=== PATIENT | female | born 1935 | race Caucasian/White ===

== ENCOUNTER 2017-02-14 11:21 | Inpatient (IN) ==
[2017-02-14] MEDS ORDERED: ONDANSETRON 4 MG/2 ML INJECTION IVP ONE (12:43)
[2017-02-14] MEDS ORDERED: MORPHINE SULFATE 4 MG SYRINGE IVP ONE (12:43)
--- NOTE | 2017-02-14 12:47 | Emergency Department Report ---
Abdominal Pain HPI - General Chief Complaint: Abdominal Pain Stated Complaint: groin pain Time Seen by Provider: 02/14/17 12:38 Source: patient Mode of arrival: ambulatory Limitations: no limitations - History of Present Illness HPI narrative: Last night she was at home and picked up a heavy pot. She felt a pain in her abdomen shortly after that. Pain persisted all night and she did not sleep well due to this. She noticed a lump in the right lower abdomen this morning. Has had some nausea but no vomiting. She has had a BM since the pain started but no diarrhea. Denies any fever or chills or history of pain like this in the past. MD complaint: abdominal pain Consistency: constant Location: RLQ Severity: moderate Quality: sharp Radiation: none Relieving factors: nothing Exacerbating factors: nothing Associated symptoms: nausea - Related Data Home Medications Medication Instructions Recorded Confirmed Glucosamine Sulfate Dipot Chlr 1,000 mg PO TID #0 08/27/12 02/14/17 [Glucosamine] Magnesium Oxide [Magnesium] 250 mg PO HS #0 tab 11/15/14 02/14/17 Cranberry Fruit Extract [Cranberry] 200 mg PO TID #0 05/26/16 02/14/17 Aspirin/Acetaminophen/Caffeine 1 tab PO Q4H PRN 02/14/17 02/14/17 [Excedrin Extra Strength Caplet] Calcium Carbonate [Calcium] 500 mg PO HS 02/14/17 02/14/17 Esomeprazole Magnesium [Nexium] 20 mg PO DAILY 02/14/17 02/14/17 Turmeric Root Extract [Turmeric] 500 mg PO DAILY 02/14/17 02/14/17 diphenhydrAMINE HCl [Benadryl] 25 mg PO Q6H PRN 02/14/17 02/14/17 Allergies Allergy/AdvReac Type Severity Reaction Status Date / Time No Known Drug Allergies Allergy Unknown Verified 02/14/17 14:04 Review of Systems Constitutional: Denies: fever, chills Cardiovascular: Denies: chest pain, palpitations, dyspnea on exertion, edema Respiratory: Denies: cough, dyspnea, wheezes Gastrointestinal: Reports: abdominal pain, nausea. Denies: vomiting, diarrhea, constipation Genitourinary: Denies: urgency, dysuria, frequency Integumentary: Denies: rash Neurological: Denies: headache, weakness, numbness PFSH Surgical History: Hysterectomy. right total knee replacement. appendectomy Family History Updates: Non contributory - Social History Smoking status: Never smoker Substance use type: does not use Alcohol intake frequency: does not drink Physical Exam - Limitations Limitations: no limitations - General General appearance: alert, in no apparent distress - Normal Exams: Neck:: Full range of motion, without adenopathy, JVD, bruits or thyromegaly Chest/Respirations:: Clear all coles, with good airflow, and symmetry bilaterally Cardiovascular:: Regular rate and rhythm, without murmur or gallop, Pulses 2+ all extremities, capillary refill, <2 seconds all extremities Integumentary:: No rashes, hives, or bruising noted Neurological:: Patient is alert, and oriented Psychiatric:: Patient exhibits, appropriate attention, emotion and affect - Abdominal Exam Abdominal exam: Present: soft, tenderness (TTP in the periumbilical region with some bulging noted in the right inguinal region. This is firm and she states that there is burning with palpation of the lump. Did try to reduce the lump but was not successful), normal bowel sounds. Absent: distention, guarding, rebound Course - Consultations Consultation #1: Discussed CT and labs and exam finding with Dr Gramajo. He will come up and evaluate patient for admission at this time. Time: 14:46 Vital Signs Temperature 98.2 F 02/14/17 11:35 Pulse Rate 84 02/14/17 11:35 Respiratory Rate 16 02/14/17 11:35 Blood Pressure 123/56 02/14/17 11:35 Pulse Oximetry 96 02/14/17 11:35 Temperature 98.2 F 02/14/17 11:35 Pulse Rate 84 02/14/17 11:35 Respiratory Rate 16 02/14/17 11:35 Blood Pressure 123/56 02/14/17 11:35 Pulse Oximetry 96 02/14/17 11:35 Abdominal Pain - MDM Narrative Medical decision making narrative: Labs today are normal. Ct does show partial small bowel obstruction. Dr Gramajo will admit today. - Differential Diagnosis Differential diagnosis: Likely: abdominal pain, acute appendicitis, other ( incarcerated or strangulated hernia) - Lab Data Attestation: I reviewed the patient's lab results. Result diagrams: 02/14/17 12:56 02/14/17 12:56 - Radiology Data Attestation: I reviewed the patient's radiology results. Partial vs early small bowel obstruction in RLQ. Did discuss the lump noted on exam with radiologist and she states that this is fluid and not small bowel. Disposition Clinical Impression: Partial small bowel obstruction Disposition: 02 To [facility] Condition: Stable Time of Disposition: 14:56 - Seen By: midlevel
[2017-02-14] MEDS: NS 1,000 ML IV SCH ×4 (13:05→17:01)
[2017-02-14] MEDS ORDERED: NS 100 ML ONE (13:08)
[2017-02-14] MEDS ORDERED: SALINE FLUSH 10ml SYRINGE ONE (13:08)
[2017-02-14] MEDS ORDERED: IOHEXOL 300mg/ml 75ml INJECTION ONE (13:08)
[2017-02-14] MEDS: SALINE FLUSH 10ml SYRINGE IVF PRN (14:08)
[2017-02-14] MEDS ORDERED: MORPHINE SULFATE 4 MG SYRINGE IVP PRN (15:53)
--- NOTE | 2017-02-14 16:27 | History and Physical ---
DATE OF SERVICE 02/14/2017 FINDINGS Mrs. Traore is a 81-year-old female whom I was asked to see through the emergency room department today as a result of her history and physical findings of abdominal pain and abnormal CT scan. Upon questioning Mrs. Traore she informs me that yesterday she lifting a heavy pot of soil to plant some tomato plants. Patient states that she began to notice some discomfort within her right inguinal region. As the evening progressed she began to notice that the pain was throughout her entire abdomen. Patient states she was fairly uncomfortable throughout the evening. She has continued to be somewhat uncomfortable today. Upon entering the ER now she states that she is feeling significantly better and requesting to go home. Last evening she described the pain as being throughout her entire abdomen. She did have some nausea in association with the pain but no emesis. PAST MEDICAL HISTORY Chronic Illness/System Disorders None. PAST SURGICAL HISTORY Hysterectomy. Appendectomy. Total knee arthroscopy. MEDICATIONS Glucosamine. Magnesium. Cranberry. Aspirin. Calcium. Nexium. Tumeric. Benadryl. For complete doses and frequencies please refer to the electronic medical record. ALLERGIES No known drug allergies. SOCIAL HISTORY The patient denies alcohol or tobacco use. FAMILY HISTORY The patient states her parents are and in their late 80s. They from old age per her report. REVIEW OF SYSTEMS Complete review of systems undertaken with the patient and essentially negative except as stated above in Findings section for Constitutional, HEENT, Cardiac, Respiratory, GI, , Musculoskeletal, Hematology/Oncology, Endocrine, and Psychiatric. PHYSICAL EXAMINATION GENERAL: Mrs. Traore is a 81-year-old female who upon entering the ER bay did not appear to be in acute distress. VITAL SIGNS: Temperature 98.2, pulse 84, respirations 16, blood pressure 123/56 , SAO2 96% on room air. Pulse 78. HEENT: Normocephalic. PERRLA. NECK: Supple without lymphadenopathy. CHEST: Clear to auscultation bilaterally. HEART: Regular rate and rhythm. Normal S1 and S2. ABDOMEN: Palpation of the abdomen reveals it to be soft and nontender throughout. She essentially had no element of guarding or rebound. Palpation within the right inguinal region does reveal a palpable abnormality on the order of 3 cm in diameter. Palpation of this firm abnormality within the right inguinal region did not elicit any discomfort to the patient. The skin was not erythematous overlying this palpable abnormality. No palpable abnormality was noted within the left inguinal region. EXTREMITIES: Without clubbing, cyanosis, or edema. NEURO: Cranial nerves II-XII grossly intact. Patient is without focal motor or sensory deficits. LABORATORY/RADIOGRAPHIC EVALUATION The patient had a CBC through the ER. White count was 10.0. Hemoglobin is 14.0. CMP was obtained and found to be without marked abnormalities. UA was obtained and found to be also essentially within normal limits. A CT scan of her abdomen and pelvis was obtained. I did review the CT scan personally as well as looked at the dictated report. The patient does have a proximal small bowel dilatation. One can see a transition zone with the distal small bowel being collapsed. I did not see evidence for bowel within the right inguinal region but one can see some fluid within the inguinal region. I could not course or see evidence for bowel extending into the right inguinal region. There is some fecalization appearance of the proximal small bowel. CT scan findings were suggestive of a possible early small bowel obstruction. ASSESSMENT 81-year-old female with possible early small bowel obstruction. Patient without acute surgical abdomen. PLAN Clinically and upon physical examination the patient does not have a surgical abdomen requiring emergent intervention. I am concerned, however, given her abnormal CT scan revealing a fair amount of proximal small bowel dilatation. Additionally, as stated above, there is an apparent transition zone with the distal small bowel being more of a normal caliber. Given her CT scan findings and this firmness noted within her right inguinal region it was my recommendation to go ahead and admit the patient to the hospital for observation. Will follow her with serial abdominal examinations. Will repeat radiographic evaluation in the consisting of KUB and upright. Will obtain additional lab work tomorrow. If the patient continues to have evidence for small bowel obstruction may proceed with Gastrografin small bowel follow- through for further evaluation. The above plan was discussed with the patient. She was in agreement and wished to be admitted for observation at this time. OBI
[2017-02-14] MEDS: D5-1/2NS with KCL 20mEq 1,000 ML IV SCH (16:39)
[2017-02-14] MEDS: FAMOTIDINE PREMIX 20 MG/50 ML BAG IV SCH (16:58)
[2017-02-14] MEDS: KETOROLAC 15 MG/ML INJECTION IVP PRN (17:35)
[2017-02-14] MEDS: METOCLOPRAMIDE 10mg/2ml INJECTION IVP PRN (17:37)
[2017-02-14] MEDS: ACETAMINOPHEN 325 MG TABLET PO PRN (20:06)
[2017-02-14] MEDS: ONDANSETRON 4 MG/2 ML INJECTION IVP PRN (20:09)
[2017-02-15] MEDS: D5-1/2NS with KCL 20mEq 1,000 ML IV SCH ×2 (03:18→15:18)
[2017-02-15] MEDS: ACETAMINOPHEN 325 MG TABLET PO PRN (03:21)
[2017-02-15] MEDS: FAMOTIDINE PREMIX 20 MG/50 ML BAG IV SCH ×2 (04:24→15:21)
[2017-02-15] MEDS: KETOROLAC 15 MG/ML INJECTION IVP PRN (04:28)
[2017-02-15] MEDS: ONDANSETRON 4 MG/2 ML INJECTION IVP PRN (07:01)
[2017-02-15] MEDS: METOCLOPRAMIDE 10mg/2ml INJECTION IVP PRN (08:21)
[2017-02-15] MEDS: HYDROMORPHONE 2 MG/ML INJECTION IVP PRN ×3 (08:38→15:18)
[2017-02-15] MEDS: ZOLMITRIPTAN 2.5 MG TABLET PO PRN ×3 (08:43→21:01)
--- NOTE | 2017-02-15 10:02 | CT Scan Report ---
Indication: RLQ pain/bulging PROCEDURE: CT abdomen pelvis w con: Encounter: Initial Comparison: None Technique: Axial CT images were performed through the abdomen and pelvis after the administration of intravenous contrast. Coronal and sagittal two-dimensional reformats. Automated Exposure Control and Iterative Reconstruction dose reducing techniques were utilized. Contrast: Omnipaque 300 68 mL Findings: Small bleb in the right lower lobe. Lung bases are otherwise clear. Large hiatal hernia with a partially intrathoracic stomach. The liver appears normal. The gallbladder is normal. The spleen, pancreas and adrenal glands are within normal limits. Kidneys are normal. No abdominal or pelvic adenopathy. Fat and fluid containing right femoral hernia. Bladder is grossly normal. Uterus is absent. Extensive colonic diverticulosis without evidence of acute diverticulitis. There are dilated fecalized loops of small bowel seen with a transition in the anterior pelvis. Small bowel loops are dilated up to 3.5 cm in diameter. The distal small bowel is totally decompressed. Bone windows are unremarkable for age. Impression: Acute high-grade or complete distal small bowel obstruction with transition in the right anterior pelvis. Surgical consultation is recommended. There is a preliminary report by [facility]. .
[2017-02-15] MEDS ORDERED: DIATRIZOATE MEGLUMINE/SOD. (66%/10%) 120ml SOLN ONE (10:08)
--- NOTE | 2017-02-15 10:11 | Consult Note ---
<ClotildeLucia rivera Denisse - Last Filed: 02/15/17 09:58> Consult Information - Data of Consult Patient: new to practice Requesting Physician: Inder Gramajo MD Primary Care Provider: Jose Knapp MD Family Provider: Jose Knapp MD - Consult Narrative Reason for consult: intractable migraine History of present illness: Yeimy Traore is a 81-year-old woman who is seen in consultation from Dr. Gramajo for further evaluation and treatment of a severe migraine. She was admitted to Dr. Gramajo's service on 02/14/17 for possible early small bowel obstruction. She stated that she began to have a mild headache in the afternoon of 02/14/17. She has a history of migraines, but hasn't had a severe one for several years. She denies ever seeing a neurologist or a headache specialist. She reports that she has at times required emergency department treatment for migraines when they become out of control. She describes her migraine is global, and is associated with severe photophobia, nausea, mild lightheadedness, and feeling hot. She received morphine 4 mg and Reglan 10 mg in the afternoon of 02/14/17 without much relief. Nursing staff also tried conservative measures such as an ice pack, which sometimes relieves her pain. By the time she went to bed, her headache was still present. The following morning, however, it was debilitating. She tried taking her home Zomig, without any relief. She was dry heaving and unable to barely move in bed, let alone be able to have her KUB done. By the time I arrived, she had received Reglan and Dilaudid IV, and her headache had nearly resolved. However, she was still feeling a little dizzy and was hesitant to move very quickly. Further ROS: Her abdominal pain has resolved. She had a BM last night. The tender spot in her right groin felt better. She denied any visual changes and her photophobia improved. She denied any sinus issues or respiratory problems or cough. No neck pain or paresthesias or unilateral weakness. She denied any chest pain or palpitations or leg swelling. No dysuria. Review of Systems All systems: reviewed and no additional remarkable complaints except as stated - Constitutional Constitutional: Present: as per HPI - EENMT Eyes: Present: as per HPI Balance: Present: as per HPI Nose: Present: as per HPI - Cardiovascular Cardiovascular: Absent: chest pain, palpitations - Respiratory Respiratory: Present: as per HPI - Gastrointestinal Gastrointestinal: Present: as per HPI - Genitourinary Genitourinary: Present: as per HPI - Musculoskeletal Musculoskeletal: Present: as per HPI - Integumentary/Breasts Integumentary: Absent: wounds - Neurological Neurological: Present: as per HPI, headache(s) - Psychiatric Psychiatric: Absent: anxiety, depression - Hematologic/Lymphatic Hematologic/Lymphatic: Absent: easy bruising PFSH GERD Cataracts OA Surgical History: Hysterectomy. right total knee replacement. appendectomy Family History: Her parents of old age. - Social History Smoking status: Never smoker Substance use type: does not use Alcohol intake frequency: does not drink Medications Home Medications Medication Instructions Recorded Confirmed Type Glucosamine Sulfate Dipot Chlr 1,000 mg PO TID #0 08/27/12 02/14/17 History [Glucosamine] Magnesium Oxide [Magnesium] 250 mg PO HS #0 tab 11/15/14 02/14/17 History Cranberry Fruit Extract [Cranberry] 200 mg PO TID #0 05/26/16 02/14/17 History Aspirin/Acetaminophen/Caffeine 1 tab PO Q4H PRN 02/14/17 02/14/17 History [Excedrin Extra Strength Caplet] Calcium Carbonate [Calcium] 500 mg PO HS 02/14/17 02/14/17 History Esomeprazole Magnesium [Nexium] 20 mg PO DAILY 02/14/17 02/14/17 History Turmeric Root Extract [Turmeric] 500 mg PO DAILY 02/14/17 02/14/17 History diphenhydrAMINE HCl [Benadryl] 25 mg PO Q6H PRN 02/14/17 02/14/17 History Allergies Allergy/AdvReac Type Severity Reaction Status Date / Time No Known Drug Allergies Allergy Unknown Verified 02/14/17 14:04 Exam Vital Signs: Temp Pulse Resp BP Pulse Ox 97.2 F 78 16 133/66 96 02/15/17 07:07 02/15/17 07:07 02/15/17 07:07 02/15/17 07:07 02/15/17 07:07 Height: 1.57 m Weight: 63.5 kg Body Mass Index: 25.2 - Constitutional Present: mild distress, well nourished, well developed - Routine HEENT Exam Head: Present: normocephalic Eye: Present: PERRL, conjunctivae pink. Absent: conjunctival icterus, scleral injection ENT: Present: oropharynx clear, dentition normal - Routine Neck Exam Present: supple. Absent: lymphadenopathy - Routine Respiratory Exam Present: CTA bilaterally - Routine Cardiovascular Exam Present: RRR, S1, S2 - Routine Abdominal Exam Present: soft, normoactive bowel sounds, non distended, non tender, mass (right groin) - Routine Extremities Exam Present: no edema, non tender, pulses intact, normal capillary refill - Routine Skin Exam Present: intact, dry, warm - Routine Neurological Exam Present: alert, oriented X3, CN II-XII intact, moving all extremities, vision grossly intact, hearing grossly intact. Absent: motor deficit, facial asymmetry - Routine Psychiatric Exam Present: normal affect, normal thought process Results - Labs CBC & Chem 7: 02/15/17 04:18 02/15/17 04:18 Assessment and Plan (1) Partial small bowel obstruction Current visit: Yes Status: Acute (2) Migraine Current visit: Yes Status: Acute Assessment and Plan: Migraine. -Relieved after IV Dilaudid. -If recurs, may try Zomig and/or oxygen -Continue with antiemetics -Records reviewed, but there were no ED visits for migraine from 2009- Partial small bowel obstruction -Symptoms improving -Per attending Hypotension -Blood pressure last night was 85/39 -Currently improved, 139/89 - however, this could be secondary to pain -Monitor closely and Continue IV fluids Labs reviewed -Normocytic anemia, suspect at least partially dilutional in nature -Chemistries unremarkable -Urinalysis negative for UTI Discussed with nursing staff, Dr. Ruiz, and Dr. Gramajo. Thank you for this consult. Hospital Course Summary Disclaimer: The visit summary below is not to be considered part of the above Progress Note. Hospital Course: 02/15/17 10:20 Migraine. -Relieved after IV Dilaudid. -If recurs, may try Zomig and/or oxygen -Continue with antiemetics -Records reviewed, but there were no ED visits for migraine from 2009- Partial small bowel obstruction -Symptoms improving -Per attending Hypotension -Blood pressure last night was 85/39 -Currently improved, 139/89 - however, this could be secondary to pain -Monitor closely and Continue IV fluids Labs reviewed -Normocytic anemia, suspect at least partially dilutional in nature -Chemistries unremarkable -Urinalysis negative for UTI Sepsis Assessment - Evaluation Sepsis screening result: No Definite Risk - Focused Exam Vital Signs Temp Pulse Resp BP Pulse Ox 02/15/17 07:07 97.2 F 78 16 133/66 96 02/15/17 04:37 105/47 02/14/17 23:27 98.2 F 70 16 85/39 92 <JosephKyara L - Last Filed: 02/15/17 12:05> Consult Information - Data of Consult Requesting Physician: Inder Gramajo MD Primary Care Provider: Jose Knapp MD Family Provider: Jose Knapp MD [facility] Patient Stated Medical History Cataracts Yes Gastroesophageal Reflux Yes Disease Other Yes: LEAKING Other Musculoskeletal Yes: ARTHRITIS IN FINGERS Blood Transfusions Yes: POST RTKA Menorrhagia Yes Exam Vital Signs: Temp Pulse Resp BP Pulse Ox 97.2 F 78 16 133/66 100 02/15/17 07:07 02/15/17 07:07 02/15/17 07:07 02/15/17 07:07 02/15/17 10:45 Height: 1.57 m Weight: 63.5 kg Results - Labs CBC & Chem 7: 02/15/17 04:18 02/15/17 04:18 Assessment and Plan (1) Partial small bowel obstruction Current visit: Yes Status: Acute (2) Migraine Current visit: Yes Status: Acute Assessment and Plan: 02/15/2017-I reviewed this chart, the patient history, and the [employer]'s/PA's documented findings as above. We discussed and formulated the assessment and plan as above with the additions below.-Dr. Ruiz I did see and examine the patient earlier this morning, and at that time she still had her migraine headache. She states her headache felt like migraine headache she's had in the past and was behind her eyes and on the top of her head. She had associated photophobia and nausea and vomiting. She denied any numbness, tingling or weakness. She denied any shortness of breath or chest pain. She continued to have some mild abdominal pain. On exam she was alert and oriented 3. HEENT revealed sclerae to be anicteric and pupils are equal. Extraocular movements are intact. Oropharynx is moist. Neck is supple. Chest is clear to auscultation. Cardiac vascular reveals a regular rate and rhythm. Abdomen is soft with mild tenderness. Bowel sounds are hypoactive. Extremities are free of edema. Neurologic reveals cranial nerves II through XII to be grossly intact. Motor strength is equal in upper and lower extremities. We'll continue IV fluids and Dilaudid as needed for migraine headache. Add oxygen and/or Zomig if needed. Hospital Course Summary Disclaimer: The visit summary below is not to be considered part of the above Progress Note. Sepsis Assessment - Focused Exam Vital Signs Temp Pulse Resp BP Pulse Ox 02/15/17 10:45 100 02/15/17 07:07 97.2 F 78 16 133/66 96 02/15/17 04:37 105/47
[2017-02-15] MEDS: SALINE FLUSH 10ml SYRINGE IVF PRN (13:38)
--- NOTE | 2017-02-15 13:47 | Progress Note ---
DATE OF SERVICE 02/15/2017 FINDINGS The patient this morning is complaining of a headache. She denied much in the way of severe abdominal pain. Patient states she did have a bowel movement last evening. PHYSICAL EXAM VITAL SIGNS: Temperature 97.2, pulse 78, respirations 16, blood pressure 133/66 , SAO2 96% on room air. CHEST: Clear to auscultation bilaterally. HEART: Regular rate and rhythm. Normal S1 and S2 without gallops, murmurs or clicks. ABDOMEN: Palpation within the abdomen reveals it to be soft and completely nontender. Palpation within the right inguinal region reveals a persistent mass although the mass does appear less prominent in nature in comparison to yesterday upon admission. This mass remains to be nontender in nature. I don' t appreciate evidence for hepatomegaly or other abnormal masses. LABORATORY/RADIOGRAPHIC EVALUATION The patient had a CBC today and her white count is down from 10,000 to 6000. Hemoglobin is stable at 11.9. BMP obtained and found to be essentially within normal limits. Although a KUB and upright have been ordered this has not been obtained as a result of the patient's headache. ASSESSMENT 81-year-old female with presentation of abdominal pain and CT scan findings of small bowel obstruction. Patient with new onset of migraine headache. PLAN Hospitalist has been consulted in regards to her migraine headache. Patient was not on medications for headaches prior to her admission. Patient states that she has not had headache like this for three to four years. In regards to her abdomen/possible small bowel obstruction, I have requested that the KUB and upright be obtained this morning so that it can be reviewed. Will likely obtain a Gastrografin small bowel series to rule out small-bowel obstruction. Will continue to follow the patient closely. OBI
[2017-02-15] MEDS ORDERED: PROMETHAZINE 25 MG SUPPOSITORY PR PRN (17:00)
[2017-02-15] MEDS ORDERED: MEPERIDINE 100 MG/ML INJECTION IVP PRN (17:01)
[2017-02-15] MEDS ORDERED: KETOROLAC 15 MG/ML INJECTION IVP ONE (17:26)
[2017-02-15] MEDS ORDERED: METOCLOPRAMIDE 10mg/2ml INJECTION IVP PRN (17:27)
[2017-02-15] MEDS ORDERED: DiphenhydrAMINE 50 MG/ML INJECTION IVP ONE (17:27)
[2017-02-15] MEDS ORDERED: DEXAMETHASONE 4 MG/ML INJECTION IVP ONE (17:38)
[2017-02-16] MEDS: D5-1/2NS with KCL 20mEq 1,000 ML IV SCH (04:01)
[2017-02-16] MEDS: FAMOTIDINE PREMIX 20 MG/50 ML BAG IV SCH (04:03)
--- NOTE | 2017-02-16 07:23 | Fluoroscopy Report ---
Indication: rule out small bowel obstruction PROCEDURE: FL small bowel follow through: Encounter: Initial Comparison: CT abdomen dated February 14, 2017 Findings: Water-soluble contrast was administered via the patient's nasogastric tube followed by serial abdominal radiographs. Contrast traverses the small bowel reaching the colon by one hour after administration. Contrast traverses the length of the colon by 2 h after administration. Left-sided colonic diverticular disease is again seen. Impression: Normal intestinal transit time excluding an ileus or significant small bowel obstruction. .
--- NOTE | 2017-02-16 07:25 | XRay Report ---
Indication: small bowel obstruction PROCEDURE: XR KUB w upright: Encounter: Initial Comparison: CT abdomen and pelvis from February 14, 2017 Findings: Lung bases are grossly clear. Large hiatal hernia with intrathoracic stomach. No free air. Contrast material in the bladder. A couple mildly dilated loops of small bowel left abdomen measuring up to 3.2 cm in diameter. Colonic gas throughout. Bony structures are unremarkable. Impression: Decreasing distention of the small bowel. .
--- NOTE | 2017-02-16 09:21 | Discharge Summary ---
Discharge Plan - Med Rec/Dispo Referrals/Follow Up: Inder Gramajo MD [Physician] - 02/25/17 3:45 pm Prescriptions: Continue Glucosamine Sulfate Dipot Chlr [Glucosamine] 1,000 mg PO TID #0 Cranberry Fruit Extract [Cranberry] 200 mg PO TID #0 diphenhydrAMINE HCl [Benadryl] 25 mg PO Q6H PRN PRN Reason: Allergy Symptoms Turmeric Root Extract [Turmeric] 500 mg PO DAILY Aspirin/Acetaminophen/Caffeine [Excedrin Extra Strength Caplet] 1 tab PO Q4H PRN PRN Reason: Pain Magnesium Oxide [Magnesium] 250 mg PO HS #0 tab Esomeprazole Magnesium [Nexium] 20 mg PO DAILY Calcium Carbonate [Calcium] 500 mg PO HS - Disposition 01 Discharged Home, Self-Care
--- NOTE | 2017-02-16 11:27 | Progress Note ---
DATE OF VISIT: 02/16/2017 FINDINGS Mrs. Zhao this morning was "ready to get out of here." She was requesting, "I want something eat." She states that her headache completely resolved earlier this morning. She is angry that she is no longer able to receive Demerol as she had in the remote past for her migraine headaches. VITALS: Afebrile. Normotensive. Current vitals include temperature 96.8, pulse 81, respirations 16, blood pressure 136/69. HEENT: Normocephalic. Pupils are equal, round and reactive to light and accommodation. CHEST: Clear to auscultation bilaterally. HEART: Regular rate and rhythm. Normal S1 and S2 without gallops, murmurs or clicks. ABDOMEN: Soft, completely nontender. Attention was focused to her right femoral region. Her femoral hernia has decreased significantly in size. There is still a minimal area of firmness noted within the right femoral region, but this is probably 80% improved. ASSESSMENT 81-year-old female with presentation of small bowel obstruction, right femoral hernia, and development of migraine headaches. Patient doing well today. PLAN I have requested the patient go ahead and receive a regular diet today. Her small bowel series yesterday did not reveal any evidence for obstruction and progressed through her small bowel and into her colon at the 2-hour film. If she does tolerate a regular diet today I do believe that she could be discharged to home this afternoon. In regards to her femoral hernia, I recommended to the patient that she should undergo an elective repair at some point in time secondary to the higher incidence of strangulation associated with a femoral hernia. I informed the patient, however, I felt that this could be accomplished on an outpatient basis. We will plan on seeing the patient in a week or two following her discharge to discuss elective right femoral herniorrhaphy. The patient agreed with the proposed plan at this time. OBI
--- NOTE | 2017-02-16 15:08 | Discharge Summary ---
Discharge Information Date of admission: 02/16/17 09:48 Attending Physician: Inder Gramajo MD Primary care physician: Jose Knapp MD - Discharge Diagnosis (1) Migraine Qualifiers: Status migrainosus presence: without status migrainosus Intractability: not intractable Status: Resolved (2) Incarcerated femoral hernia Status: Chronic - Laboratory Labs: Laboratory Tests 02/14/17 02/14/17 02/15/17 12:56 12:56 04:18 WBC 10.0 6.1 Hgb 14.0 11.9 L D Sodium 141 Potassium 3.9 Chloride Carbon Dioxide BUN 19.0 H Creatinine 0.7 Glucose 101 02/16/17 02/16/17 07:51 07:51 WBC 10.5 D Hgb 12.6 Sodium 144 Potassium 4.1 Chloride 108 H Carbon Dioxide 26 BUN 11.0 Creatinine 0.6 L Glucose 115 H - Radiology Radiology: 02-14-2017 CT abdomen pelvis Findings: Small bleb in the right lower lobe. Lung bases are otherwise clear. Large hiatal hernia with a partially intrathoracic stomach. The liver appears normal. The gallbladder is normal. The spleen, pancreas and adrenal glands are within normal limits. Kidneys are normal. No abdominal or pelvic adenopathy. Fat and fluid containing right femoral hernia. Bladder is grossly normal. Uterus is absent. Extensive colonic diverticulosis without evidence of acute diverticulitis. There are dilated fecalized loops of small bowel seen with a transition in the anterior pelvis. Small bowel loops are dilated up to 3.5 cm in diameter. The distal small bowel is totally decompressed. Bone windows are unremarkable for age. Impression: Acute high-grade or complete distal small bowel obstruction with transition in the right anterior pelvis. Surgical consultation is recommended. 02-26-2014 Small bowel series' Findings: Water-soluble contrast was administered via the patient's nasogastric tube followed by serial abdominal radiographs. Contrast traverses the small bowel reaching the colon by one hour after administration. Contrast traverses the length of the colon by 2 h after administration. Left-sided colonic diverticular disease is again seen. Impression: Normal intestinal transit time excluding an ileus or significant small bowel obstruction. History of Present Illness HPI: 02-14-2017 FINDINGS Mrs. Traore is a 81-year-old female whom I was asked to see through the emergency room department today as a result of her history and physical findings of abdominal pain and abnormal CT scan. Upon questioning Mrs. Traore she informs me that yesterday she lifting a heavy pot of soil to plant some tomato plants. Patient states that she began to notice some discomfort within her right inguinal region. As the evening progressed she began to notice that the pain was throughout her entire abdomen. Patient states she was fairly uncomfortable throughout the evening. She has continued to be somewhat uncomfortable today. Upon entering the ER now she states that she is feeling significantly better and requesting to go home. Last evening she described the pain as being throughout her entire abdomen. She did have some nausea in association with the pain but no emesis. ASSESSMENT 81-year-old female with possible early small bowel obstruction. Patient without acute surgical abdomen. PLAN Clinically and upon physical examination the patient does not have a surgical abdomen requiring emergent intervention. I am concerned, however, given her abnormal CT scan revealing a fair amount of proximal small bowel dilatation. Additionally, as stated above, there is an apparent transition zone with the distal small bowel being more of a normal caliber. Given her CT scan findings and this firmness noted within her right inguinal region it was my recommendation to go ahead and admit the patient to the hospital for observation. Will follow her with serial abdominal examinations. Will repeat radiographic evaluation in the consisting of KUB and upright. Will obtain additional lab work tomorrow. If the patient continues to have evidence for small bowel obstruction may proceed with Gastrografin small bowel follow- through for further evaluation. The above plan was discussed with the patient. She was in agreement and wished to be admitted for observation at this time. Hospital Course Hospital course: 02/15/17 10:20 Migraine. -Relieved after IV Dilaudid. -If recurs, may try Zomig and/or oxygen -Continue with antiemetics -Records reviewed, but there were no ED visits for migraine from 2009-present Partial small bowel obstruction -Symptoms improving -Per attending Hypotension -Blood pressure last night was 85/39 -Currently improved, 139/89 - however, this could be secondary to pain -Monitor closely and Continue IV fluids Labs reviewed -Normocytic anemia, suspect at least partially dilutional in nature -Chemistries unremarkable -Urinalysis negative for UTI 02-16-2017 Doing well, discharged to home. Will see Dr. Clark 21 to discuss and schedule femoral hernia repair. She is instructed to present to the emergency department or Dr. Gramajo's office if inguinal pain increases. DVT Prophylaxis: SCD's Discharge Plan - Med Rec/Dispo Referrals/Follow Up: Inder Gramajo MD [Physician] - 02/25/17 3:45 pm [facility] Instructions: Migraine Headache (GEN) Prescriptions: Continue Glucosamine Sulfate Dipot Chlr [Glucosamine] 1,000 mg PO TID #0 Cranberry Fruit Extract [Cranberry] 200 mg PO TID #0 diphenhydrAMINE HCl [Benadryl] 25 mg PO Q6H PRN PRN Reason: Allergy Symptoms Turmeric Root Extract [Turmeric] 500 mg PO DAILY Aspirin/Acetaminophen/Caffeine [Excedrin Extra Strength Caplet] 1 tab PO Q4H PRN PRN Reason: Pain Magnesium Oxide [Magnesium] 250 mg PO HS #0 tab Esomeprazole Magnesium [Nexium] 20 mg PO DAILY Calcium Carbonate [Calcium] 500 mg PO HS - Disposition 01 Discharged Home, Self-Care
== END 2017-02-16 10:21 | disposition home or self-care (01) | DRG 395 ==
LOC: SRG 11:21 → ED 11:21 → SUR 16:01 → SRG 16:18 → UNDODEPER 16:30 → SUR 16:34 → SRG 16:34 → UNDODISIN 02-16 10:21
PROVIDERS: ADMIT Surgery; ATTEND Surgery